=== PATIENT | female | born 1980 | race Caucasian/White ===

== ENCOUNTER 2018-09-16 22:17 | Emergency (ER) | payer BC ==
[~2018-09-16] VITALS: Ht 175.3 cm; Wt 81.6 kg
[2018-09-16] MEDS ORDERED: Norco 5mg/325mg tab ORAL ONE (23:00)
[2018-09-16 23:30] VITALS: BP 131/67
[2018-09-16 23:40] VITALS: BP 135/72
[2018-09-16] MEDS ORDERED: HYDROCODON-ACE1 EA15 ORAL (23:40)
[2018-09-16] MEDS ORDERED: PREDNISONE20 MG ORAL (23:40)
[2018-09-16] MEDS ORDERED: IBUPROFEN600 MG ORAL (23:40)
--- NOTE | 2018-09-16 23:41 | Emergency Room Report ---
History of Present Illness General Chief Complaint: Neck Pain Source: Patient Present Illness HPI This is a 37-year-old female with a history of sciatica. She presents with chief complaint of neck pain ongoing for a week. No trauma. Pain is shooting down her left arm. Worse when she per her neck backward. Pain is 9 out of 10. Throbbing and sharp in nature. The leg or arm going to sleep. No other neurological deficit. Allergies: Coded Allergies: No Known Allergies (Unverified , 09/16/18) Patient History Past Medical History: see triage record, old chart reviewed Past Surgical History: none Pertinent Family History: none Social History: Denies: smoking Last Menstrual Period: 09/03/18 Now: No Immunizations: other Reviewed Nursing Documentation: PMH: Agreed; PSxH: Agreed Nursing Documentation-PMH Past Medical History: No Stated History Review of Systems Eye: Denies: eye pain, blurred vision ENT: Denies: ear pain, nose congestion, throat swelling Respiratory: Denies: cough, shortness of breath Cardiovascular: Denies: chest pain, palpitations Gastrointestinal: Denies: abdominal pain, diarrhea, nausea, vomiting Musculoskeletal: Denies: back pain, joint pain Skin: Denies: rash Neurological: Denies: headache, numbness Endocrine: Denies: increased thirst, increased urine Hematologic/Lymphatic: Denies: easy bruising All Other Systems: negative except mentioned in HPI Physical Exam Vital Signs Date Time Temp Pulse Resp B/P (MAP) Pulse Ox O2 Delivery O2 Flow Rate FiO2 09/16/18 22:23 97.5 70 18 135/72 100 Room Air vitals normal Sp02 EP Interpretation: reviewed, normal General Appearance: well appearing, no apparent distress, alert Head: normocephalic, atraumatic Eyes: bilateral eye PERRL, bilateral eye EOMI ENT: hearing grossly normal, normal pharynx Neck: full range of motion, supple, no meningismus Respiratory: chest non-tender, lungs clear, normal breath sounds Cardiovascular #1: regular rate, rhythm, no murmur Gastrointestinal: normal bowel sounds, non tender, no mass, no organomegaly, no bruit, non-distended Musculoskeletal: back normal, gait/station normal, normal range of motion Psychiatric: mood/affect normal Skin: warm/dry Medical Decision Making Diagnostic Impression: Primary Impression: Cervical radiculopathy, acute ER Course Patient with a cervical radiculopathy. No evidence of cauda equina syndrome, spinal epidural abscess or neoplastic process. CT/MRI/US Diagnostic Results CT/MRI/US Diagnostic Results : Imaging Test Ordered: CT C-spine Impression read by radiologist. Neg Last Vital Signs Date Time Temp Pulse Resp B/P (MAP) Pulse Ox O2 Delivery O2 Flow Rate FiO2 09/16/18 22:23 97.5 70 18 135/72 100 Room Air Status: improved Disposition: HOME, SELF-CARE Condition: Stable Scripts Prednisone* (PREDNISONE*) 20 Mg Tablet 40 MG ORAL DAILY, #10 TAB Prov: Jamin Mishra MD 09/16/18 Ibuprofen* (MOTRIN*) 600 Mg Tablet 600 MG ORAL THREE TIMES A DAY, #30 TAB 0 Refills Prov: Jamin Mishra MD 09/16/18 Hydrocodone/Acetaminophen 5-325* (HYDROCODONE/ACETAMINOPHEN 5-325*) 1 Each Tablet 1 TAB ORAL Q6H PRN for For Pain, #15 TAB 0 Refills Prov: Jamin Mishra MD 09/16/18 Referrals: NON PHYSICIAN (PCP) Additional Instructions: Follow-up with your doctor in 7 days. You may need an MRI if pain persists. Return if symptom worsen. Jamin Mishra MD Sep 16, 2018 23:41
--- NOTE | 2018-09-17 08:56 | Diagnostic Imaging Report ---
Indication: Neck pain Technique: CT of the spine was performed utilizing automated exposure control without intravenous contrast material. Axial and sagittal and coronal images were generated. CT dose: Total DLP 273.39 mGycm; CTDI vol 14.59 mGy Comparison: None Findings: Bone mineralization within normal limits. There is mild reversal of the normal cervical lordosis. No evidence to suggest spondylolisthesis. No acute cervical spine fracture identified. Vertebral body heights and disc spaces are maintained. No bony central canal stenosis or bony foraminal narrowing. No prevertebral soft tissue fluid collection. Imaged portions of the thyroid unremarkable. Imaged portions of the posterior fossa unremarkable. IMPRESSION: * Reversal of the normal cervical lordosis without evidence to suggest anterolisthesis. * No acute cervical spine fracture identified. This corresponds with the statrad preliminary report. The CT scanner at [facility] is accredited by the [employer] and the scans are performed using protocols designed to limit radiation exposure to as low as reasonably achievable to attain images of sufficient resolution adequate for diagnostic evaluation.
== END 2018-09-16 23:45 | disposition home or self-care (01) ==
LOC: EMR 23:05
DX: M54.12 Radiculopathy, cervical region (principal)
CPT/HCPCS: 72125; 99283